=== PATIENT | female | born 1980 | race Caucasian/White ===

== ENCOUNTER → 2023-10-17 12:44 | Outpatient (REF) | payer OTHER, SELFPAY | LOC: HWRAD 12:44 | PROVIDERS: ATTENDING PHYSICIAN Urology; FAMILY PHYSICIAN Family Medicine | DX: R14.0 Abdominal distension (gaseous) (principal); E06.3 Autoimmune thyroiditis; N30.10 Interstitial cystitis (chronic) without hematuria; R31.29 Other microscopic hematuria; N39.3 Stress incontinence (female) (male) | CPT/HCPCS: 76536; 76770; 76830; 76856 ==

== ENCOUNTER 2023-11-19 11:23 | Outpatient (RCR) | payer SELFPAY | END 2023-11-19 23:59 | disposition home or self-care (01) | LOC: RPT 11:23 | PROVIDERS: ATTENDING PHYSICIAN Urology; FAMILY PHYSICIAN Family Medicine | DX: N30.10 Interstitial cystitis (chronic) without hematuria (principal); M62.81 Muscle weakness (generalized); R10.2 Pelvic and perineal pain; N39.46 Mixed incontinence | CPT/HCPCS: 97110; 97163 ==

== ENCOUNTER → 2024-03-29 16:00 | Outpatient (REF) | payer OTHER, SELFPAY | LOC: HWWDC 16:00 | PROVIDERS: ATTENDING PHYSICIAN Family Medicine | DX: Z12.31 Encounter for screening mammogram for malignant neoplasm of breast (principal) | CPT/HCPCS: 77063; 77067 ==

== ENCOUNTER → 2024-04-16 15:54 | Outpatient (REF) | payer OTHER, SELFPAY | LOC: MRI 3T 15:54 | PROVIDERS: ATTENDING PHYSICIAN Obstetrics & Gynecology Gynecologic Oncology; FAMILY PHYSICIAN Family Medicine | DX: D50.9 Iron deficiency anemia, unspecified (principal); D25.9 Leiomyoma of uterus, unspecified; N92.4 Excessive bleeding in the premenopausal period; F41.1 Generalized anxiety disorder; R32 Unspecified urinary incontinence; Z12.4 Encounter for screening for malignant neoplasm of cervix | CPT/HCPCS: 72197; A9575 ==

== ENCOUNTER 2024-08-26 19:52 | Emergency (ER) | payer OTHER, SELFPAY ==
[2024-08-26 19:58] VITALS: BP 114/80
[2024-08-26 20:48] VITALS: BMI 24.2
[2024-08-26 21:44] VITALS: BP 99/69
--- NOTE | 2024-08-26 22:20 | ED.GENMED ---
History of Present Illness
General
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
Source: patient
Exam Limitations: none
Time Seen by Provider: 08/26/24 20:46
Nursing documentation reviewed up to this point in time: agreed with
History of Present Illness
History of Present Illness:
Patient is a 44-year-old healthy female presenting to the emergency department with concerns of retained tampon. Patient states that she removed a tampon this morning and thought that she inserted a new one although when she went to remove said
tampon this afternoon she could not locate it. Patient states that she tried to manually 'feel around 'although was unsuccessful in finding tampon. Patient denies any vaginal discomfort or abnormal discharge. Patient states she is on the fourth
day of her menstrual cycle today and bleeding has subsided.
Ultimately�patient states she is unsure if she ever put tampon in this morning although wanted to come to the emergency department to be evaluated. Patient denies any abdominal pain. No lightheadedness, dizziness, or fever.
Patient has a history of fibroids and actually has an appointment scheduled with her gynecology/oncology on Friday.
Review of Systems
Review of Systems
Allergies reviewed?: Yes
All Other Systems: ROS reviewed and negative except as documented in HPI and ROS
Phy Exam
Physical Exam
Physical Exam:
Vitals: Patient's vital signs are stable. Afebrile
General: Patient is well appearing, no acute distress. Nontoxic appearing
Skin: Warm and dry, no rashes or lesions
Head: Normocephalic, atraumatic
Throat: Protecting airway
Neck: Normal ROM, no cervical spine tenderness
Cardiac: Regular rate
Pulm: No apparent respiratory distress
Abdomen: Soft and nontender. Nondistended
Pelvic: External genitalia normal appearing without lesions, ulcerations, or adenopathy. Vaginal vault with mild bleeding from cervical os. No visualized lesions or ulcerations. No foreign body visualized in vaginal vault or cervical fornices.
Bimanual exam without any palpable foreign body.
Extremities: No evidence of cyanosis or edema. Perfusing well with palpable distal pulses bilaterally.
Neuro: Grossly intact
Psychiatric: Normal affect.
Course
Vital Signs
Initial and Last Documented VS:
Initial Vital Signs
Temp Pulse Resp BP Pulse Ox
98 F 96 16 114/80 99
08/26/24 19:58 08/26/24 19:58 08/26/24 19:58 08/26/24 19:58 08/26/24 19:58
Last Documented Vital Signs
Temp Pulse Resp BP Pulse Ox
98 F 104 18 99/69 100
08/26/24 19:58 08/26/24 21:44 08/26/24 21:44 08/26/24 21:44 08/26/24 21:44
MDM/Problems Addressed
Differential Diagnosis Includes:
Not limited to: Retained tampon, normal menstrual bleeding, etc.
MDM/Problems Addressed:
44 year old female presenting with concerns of retained tampon. Patient unsure if she inserted one this morning. Minimal vaginal bleeding as she is on her menstrual cycle although no fevers, abdominal discomfort, abnormal vaginal discharge. Vitals
stable. Pelvic exam including speculum exam along with bimanual exam performed without evidence of retained tampon. Abdomen soft and nontender. Very low suspicion for retained tampon at this time. Feel stable for discharge home. Return precautions
discussed including signs of infection. Patient has regularly scheduled f/u with wheel adjuster/onc on friday for hx fibroids. She will have repeat examination at that time if concern for retained tampon persists.
Chronic conditions affecting care:
N/A
Acute Exacerbation and/or Progression of Chronic Illness:
N/A
*Pulse Oximetry
Patient hypoxic: no
*EKG
Interpreted by ED Provider?: NA
*Stained Glass Painter Interpretation
Rate: Stained Glass Painter- N/A
*Critical Care Note
Total Time (30-74mins, 75-104mins- exclusive of procedures): Not Applicable
ED Attending Note
-
Portions of this chart may have been created with voice recognition software.� Occasional wrong word or��sound alike� substitutions may have occurred due to the inherent limitations of voice recognition software.
Discharge Plan
Departure
Patient Disposition: Home (Routine Discharge)
Date of Disposition: 08/26/24
Time of Disposition: 21:58
Patient with high blood pressure during this ER visit?: No
Condition: Good
Covid-19: Not Applicable
Discharge Problem:
Retained tampon not found on examination
Activity Restrictions/Additional Instructions:
RETURN TO THE EMERGENCY DEPARTMENT WITH ANY FEVERS, ABDOMINAL PAIN, ABNORMAL VAGINAL DISCHARGE OR DISCOMFORT, INTRACTABLE NAUSEA/VOMITING, WORSENING IN CURRENT SYMPTOMS, OR ANY OTHER CONCERNS
-As discussed�no tampon was found in her examination the emergency department today.
-Follow-up with your gynecology/oncology as scheduled on Friday. If there is any concern for retained tampon at that time-you can be further evaluated
Monitor symptoms closely and return to the emergency department with any acute worsening/new symptoms or any signs of infection
Interventions
Interventions:
*Risk Screen - Suicide Last Done: 08/26/24 19:59
*General Assessment Last Done: 08/26/24 20:48
*Neglect/Abuse Screening Last Done: 08/26/24 19:59
ED- Fall Risk Assessment Last Done: 08/26/24 20:48
*ED COVID-19 Vaccine History Last Done: 08/26/24 20:48
*Nursing Disposition Last Done: 08/26/24 22:08
ED-Female Genitourinary Assessment Last Done: 08/26/24 20:48
Discharge Date and Time
Discharge Date/Time: 08/26/24 22:12
Print Language: JAPANESE
== END 2024-08-26 22:12 | disposition home or self-care (01) ==
LOC: EMR 19:52
PROVIDERS: EMERGENCY PHYSICIAN Emergency Medicine; FAMILY PHYSICIAN Family Medicine
DX: Z04.89 Encounter for examination and observation for other specified reasons (principal)
CPT/HCPCS: 99282

== ENCOUNTER → 2024-08-30 16:08 | Outpatient (REF) | payer BC, SELFPAY ==
[2024-08-30 09:53] LABS: % Eosinophils 1.5 % (0-6); % Immature Granulocytes 0.2 % (0-0.5); % Lymphocytes 38.3 % (20.5-51.1); % Monocytes 7.6 % (1.7-9.3); % Neutrophils 51.4 % (42.2-75.2); Absolute Basophils 0.1 10^3/uL (0-0.2); Absolute Eosinophils 0.1 10^3/uL (0-0.7); Absolute Lymphocytes 2.3 10^3/uL (1.2-3.4); Absolute Monocytes 0.5 10^3/uL (0.1-0.6); Absolute Neutrophils 3.1 10^3/uL (1.4-6.5); Hematocrit 38.5 % (37.0-47.0); Hemoglobin 12.5 g/dL (12.0-16.0); Mean Corp Hgb Conc. 32.5 g/dL (33.0-37.0); Mean Corpuscular Volume 89.3 fL (81.0-99.0); Mean Platelet Volume 9.9 fL (7.4-10.4); Platelet Count 301 10^3/uL (130-400); Red Blood Cell Count 4.31 10^6/uL (4.20-5.40); Red Cell Dist. Width 13.4 % (11.5-14.5)
== END ==
LOC: OIDL 16:08
PROVIDERS: ATTENDING PHYSICIAN Nurse Practitioner Adult Health
DX: D50.9 Iron deficiency anemia, unspecified (principal); D25.9 Leiomyoma of uterus, unspecified; N92.4 Excessive bleeding in the premenopausal period; F41.1 Generalized anxiety disorder
CPT/HCPCS: 85025

== ENCOUNTER → 2024-11-09 08:02 | Outpatient (REF) | payer BC, SELFPAY | LOC: HWRAD 08:02 | PROVIDERS: ATTENDING PHYSICIAN Obstetrics & Gynecology Gynecologic Oncology; FAMILY PHYSICIAN Family Medicine | DX: D25.9 Leiomyoma of uterus, unspecified (principal); Z12.4 Encounter for screening for malignant neoplasm of cervix | CPT/HCPCS: 76830; 76856 ==

== ENCOUNTER 2025-02-22 15:22 | Emergency (ER) | payer BC, SELFPAY ==
[2025-02-22 15:30] VITALS: BP 122/77
[2025-02-22 15:52] LABS: Hematocrit 37.8 % (37.0-47.0); Hemoglobin 12.9 g/dL (12.0-16.0); Mean Corp Hgb Conc. 34.1 g/dL (33.0-37.0); Mean Corpuscular Volume 87.3 fL (81.0-99.0); Nucleated Red Blood Cells % 0 %; Platelet Count 287 10^3/uL (130-400); Red Cell Dist. Width 12.3 % (11.5-14.5)
[2025-02-22 15:56] LABS: INR 0.95; PT 13.0 Sec (11.4-14.6)
[2025-02-22 15:59] LABS: HCG, Serum Qualitative Screen Negative
[2025-02-22 16:05] LABS: ALT (SGPT) 13 U/L (0-35); AST (SGOT) 16 U/L (14-36); Albumin 4.5 g/dl (3.5-5.0); Alkaline Phosphatase 49 U/L (38-126); Blood Urea Nitrogen 11 mg/dl (7-17); Calcium 9.9 mg/dl (8.4-10.2); Carbon Dioxide 23 mmol/L (22-30); Chloride 108 mmol/L (98-107); Glucose 96 mg/dl (70-99); Potassium 4.6 mmol/L (3.5-5.1); Sodium 138 mmol/L (135-145); Total Protein 7.1 g/dl (6.3-8.2); eGFR > 60.00
[2025-02-22 16:17] LABS: Troponin I < 0.012 ng/ml
[2025-02-22 16:41] VITALS: BP 97/74
--- NOTE | 2025-02-22 16:42 | ED.GENMED ---
History of Present Illness
General
Chief Complaint: Chest Pain
Source: patient
Exam Limitations: none
Time Seen by Provider: 02/22/25 16:30
Nursing documentation reviewed up to this point in time: agreed with
History of Present Illness
History of Present Illness:
The patient is a 44-year-old female who presents to the emergency department for evaluation of chest pain. Patient states she was driving her car around 1:30 PM when she noticed a squeezing sensation in her left lower chest which radiated into her
left back. She does not describe back pain as 'tearing'. Symptoms were relatively constant for about 3 hours and have since begun to dissipate. She only reports very minimal discomfort at this time.
She denies any pleuritic or exertional component to symptoms. No associated shortness of breath, lightheadedness, diaphoresis, nausea. No numbness/tingling of extremities.
No recent trauma or inciting injury.
Patient denies any recent travel or recent surgery. No exogenous hormone use. No pain or swelling in lower extremities. No personal or family history of blood clots/clotting disorders.
Review of Systems
Review of Systems
Allergies reviewed?: Yes
All Other Systems: ROS reviewed and negative except as documented in HPI and ROS
Phy Exam
Physical Exam
Physical Exam:
Vitals: Patient's vital signs are stable. Afebrile
General: Patient is somewhat anxious appearing. In no distress
Skin: Warm and dry, no rashes or lesions
Head: Normocephalic, atraumatic
Eyes: Sclera nonicteric.
Throat: Protecting airway
Neck: Normal ROM, no cervical spine tenderness, no meningismus. No JVD
Cardiac: Regular rate and rhythm, no murmurs. No reproducible chest wall tenderness or rash. 2+ palpable radial pulses bilaterally
Pulm: Normal respiratory effort, no wheezes, rales, rhonchi heard on exam
Abdomen: No abdominal tenderness.
Extremities: No evidence of cyanosis or edema. 2+ palpable DP pulses bilaterally
Neuro: AAOx3. Grossly intact
Psychiatric: Normal affect.
Scores
Heart Score for Chest Pain Patients
STEMI patient?: Not applicable
Course
Orders/Labs/Results
Orders:
Orders
02/22/25 15:23
Electrocardiogram (*1) Urgent
Reason for Study: Chest Pain
EKG- Treatment ONCE
02/22/25 15:31
Test Result ONCE
02/22/25 15:35
Complete Blood Count/With Diff Urgent
Comprehensive Metabolic Panel Urgent
D-Dimer Urgent
Comment: ADD ON
HCG, Serum Qualitative Screen Urgent
Prothrombin Time Urgent
TSH Reflex To Free T4 Urgent
Troponin I Urgent
02/22/25 16:58
Add On- LAB Urgent
Tests Added?: d-dimer
02/22/25 17:36
CR Chest - 2 Views Urgent
Comment:
Reason For Exam: Left sided chest pain
02/22/25 18:29
Troponin I Urgent
02/22/25 18:35
Electrocardiogram (*1) Urgent
Reason for Study: Chest Pain
EKG- Treatment ONCE
Abnormal Lab Results
02/22/25
15:35
Chloride 108 H mmol/L
(98-107)
02/22/25 15:35
02/22/25 15:35
Vital Signs
Initial and Last Documented VS:
Initial Vital Signs
Temp Pulse Resp BP Pulse Ox
97.8 F 94 17 122/77 99
02/22/25 15:30 02/22/25 15:30 02/22/25 15:30 02/22/25 15:30 02/22/25 15:30
Last Documented Vital Signs
Temp Pulse Resp BP Pulse Ox
98.4 F 87 14 109/74 99
02/22/25 16:41 02/22/25 19:05 02/22/25 19:05 02/22/25 19:05 02/22/25 16:46
MDM/Problems Addressed
Differential Diagnosis Includes:
Not limited to: Chest wall strain/spasm, GERD, acute coronary syndrome, pulmonary embolism, pericarditis, anxiety, etc.
MDM/Problems Addressed:
44-year-old female with a few hours of left sided chest discomfort with some radiation into the left mid back. No exertional or pleuritic component. No associated fever, productive cough, lightheadedness or neurologic symptoms. No history CAD or
significant family history. Vitals and physical exam as above. Cardio/pulmonary assessment unremarkable with no reproachable tenderness to chest wall or scapular region. No clinical evidence of DVT on exam. Patient is essentially asymptomatic by my
exam.
Differential as above. Symptoms do not seem anginal in nature and patient has no risk factors for PE. ED plan: labs, serial troponins. Will check D-dimer given some radiation into back. Will obtain chest x-ray and reassess.
Update: patient has remained hemodynamically stable and asymptomatic in the emergency department. Lab work unremarkable including serial troponins negative times two and negative d-dimer. Chest x-ray without acute findings. Very low suspicion for
acute cardiac/pulmonary emergent process given negative work up and resolution of symptoms. Feel stable for discharge home with PCP f/u. Will provide contact information for cardiology as needed. Return precautions discussed.
Chronic conditions affecting care:
N/A
Acute Exacerbation and/or Progression of Chronic Illness:
N/A
*Pulse Oximetry
SaO2: 99
Oxygen Mode of Delivery: Room air
Patient hypoxic: no
*EKG
Interpreted by ED Provider?: Yes
EKG Intrepretation Date: 02/22/25
Interpretation: normal
Comparison EKG: no comparison EKG present
Heart Rate: 97
Rate: normal
Rhythm: sinus
[place]: normal axis
Interval: normal QT interval
QRS Pattern: normal QRS
Ischemia: non-specific ST changes
*Cfo Controller Interpretation
Rate: normal
Interpretation: normal
Heart Rate: 84
Rhythm: sinus
*Critical Care Note
Total Time (30-74mins, 75-104mins- exclusive of procedures): Not Applicable
ED Attending Note
-
Portions of this chart may have been created with voice recognition software.� Occasional wrong word or��sound alike� substitutions may have occurred due to the inherent limitations of voice recognition software.
Discharge Plan
Departure
Patient Disposition: Home (Routine Discharge)
Date of Disposition: 02/22/25
Time of Disposition: 19:14
Patient with high blood pressure during this ER visit?: No
Condition: Good
Discharge Problem:
Chest pain
Instructions: Chest pain (DC), Chest Pain PCP Follow Up
Referrals:
Devon Darling DO [Family Provider, Family Practice]
Montserrat Chen DO [Active, Cardiology]
Activity Restrictions/Additional Instructions:
RETURN TO THE EMERGENCY DEPARTMENT WITH ANY CHEST PAIN, SHORTNESS OF BREATH/DIFFICULTY BREATHING, SEVERE BACK PAIN, NUMBNESS/TINGLING IN EXTREMITIES, LIGHTHEADEDNESS EPISODES OF FAINTING, WORSENING IN CURRENT SYMPTOMS, OR ANY OTHER CONCERNS
- You came to the emergency today with concerns of chest pain. Your workup in the emergency department including basic lab work, cardiac enzymes were without any acute abnormalities.
- It is important to stay well-hydrated. Continue to take all medications as prescribed.
- Follow-up with your primary care provider for further evaluation/management and to ensure that your symptoms improve.
Monitor your symptoms closely and return to the emergency department with any acute worsening/new symptoms or any other concerns
Interventions
Interventions:
*Risk Screen - Suicide Last Done: 02/22/25 15:31
*General Assessment Last Done: 02/22/25 15:31
*Neglect/Abuse Screening Last Done: 02/22/25 15:31
*ED- Fall Risk Assessment Last Done: 02/22/25 19:24
*ED COVID-19 Vaccine History Last Done: 02/22/25 15:31
*Nursing Disposition Last Done: 02/22/25 19:24
ED- Cardiac Assessment Last Done: 02/22/25 16:47
Discharge Date and Time
Discharge Date/Time: 02/22/25 19:26
Print Language: TURKISH
[2025-02-22 16:46] VITALS: BMI 25.0
[2025-02-22 17:22] LABS: D-Dimer 0.36 ug/mlFEU (0.00-0.50)
[2025-02-22 18:21] VITALS: BP 111/76
[2025-02-22 19:00] LABS: Troponin I < 0.012 ng/ml
[2025-02-22 19:05] VITALS: BP 109/74
== END 2025-02-22 19:26 | disposition home or self-care (01) ==
LOC: EMR 15:22
PROVIDERS: Physician Assistant; EMERGENCY PHYSICIAN Emergency Medicine; FAMILY PHYSICIAN Family Medicine
DX: R07.89 Other chest pain (principal); M54.9 Dorsalgia, unspecified
CPT/HCPCS: 99285; 71046; 80053; 84443; 84484; 84703; 85025; 85379; 85610; 93005

== ENCOUNTER → 2025-06-15 18:12 | Outpatient (REF) | payer BC, SELFPAY | LOC: WDC 18:12 | PROVIDERS: ATTENDING PHYSICIAN Family Medicine | DX: Z12.31 Encounter for screening mammogram for malignant neoplasm of breast (principal) | CPT/HCPCS: 77063; 77067 ==